=== PATIENT | male | born 1980 | race Caucasian/White ===

== ENCOUNTER 2020-01-30 20:26 | Emergency (ER) | payer BC ==
[~2020-01-30] VITALS: Ht 175.3 cm; Wt 81.6 kg
--- OUTSIDE RECORDS SUMMARY | 2020-01-30 20:29 | XMS REPORT | Summary of Care ---
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 Take organism 500 mg day 1, then 250 mg days 2 to 5. Active SPIRIVA RESPIMAT 2.5 INHALE 1 PUFF 0 mcg/actuation Mist PO BID 9 Active albuterol 90 Inhale 2 8.5 g 0 mcg/actuation Puffs every 4 9 inhalerIndications: Acute (four) hours bronchitis, unspecified as needed for organism Wheezing or Shortness of Breath. Active budesonide-formoterol Inhale 2 10.2 g 3 (SYMBICORT) 160-4.5 Puffs 2 (two) 9 mcg/actuation times daily. inhalerIndications: Acute bronchitis, unspecified organism Active predniSONE 20 mg Take 2 pills 10 tablet 0 07/13/20 1 tabletIndications: Acute daily for 5 9 bronchitis, unspecified days organism Active azithromycin 250 mg Take 1 tablet 1 Package 0 tabletIndications: Acute by mouth 9 bronchitis, unspecified daily. Take organism 500 mg day 1, then 250 mg days 2 to 5. Active codeine-guaifenesin Take 5 mL by 120 mL 0 07/13 (CHERATUSSIN AC) 10-100 mouth every 6 9 mg/5 mL (six) hours solutionIndications: as needed for Acute bronchitis, Cough. unspecified organism Active montelukast 10 mg Take 1 tablet 90 tablet 1 tabletIndications: Acute by mouth 9 bronchitis, unspecified daily. organism, Intermittent asthma without complication, unspecified asthma severity Active SPIRIVA RESPIMAT 2.5 INHALE 1 PUFF 4 g 1 mcg/actuation BY MOUTH 0 MistIndications: Acute TWICE DAILY bronchitis, unspecified organism 2019 Discontinued tiotropium bromide Inhale 1 Puff 4 g 1 07/13 (SPIRIVA RESPIMAT) 2.5 2 (two) times 9 mcg/actuation daily. MistIndications: Acute bronchitis, unspecified organism documented as of this encounter (statuses as of 2019) Active Problems No known active problemsdocumented as of this encounter (statuses as of 2019) Social History Date Tobacco Use Types Packs/Day Years Used Current Every Day Smoker Smokeless Tobacco: Current User Drinks/Week oz/Week Comments Alcohol Use Yes Sex Assigned at Date Recorded Not on file Industry Job Start Date Occupation Not on file Not on file Not on file Travel End Travel History Travel Start No recent travel history available. documented as of this encounter Last Filed Vital Signs Not on filedocumented in this encounter Plan of Treatment Health Maintenance Due Date Last Done Comments VARICELLA VACCINES (1 of 1982 2 - 2-dose childhood series) PNEUMOCOCCAL 0-64 YEARS 1987 COMBINED SERIES (1 of - PPSV23) DTaP,Tdap,and Td Vaccines 1992 (1 - Tdap) INFLUENZA VACCINE (#1) 2019 documented as of this encounter Results Not on filedocumented in this encounter Visit Diagnoses Diagnosis Acute bronchitis, unspecified organism documented in this encounter Insurance Type Payer Benefit Subscriber ID Effective Phone Address Plan / Dates Group PPO/POS [employer] OF [place] BCBS OF [id number] 2018-P [phone] [facility] [id number] [place] [address] documented as of this encounter
--- OUTSIDE RECORDS SUMMARY | 2020-01-30 20:29 | XMS REPORT ---
Author Author [facility] Organization [facility] Address [address] [place] [address] Phone Unavailable Care Team Providers Care Brass Chaser Name Role Phone Unavailable Unavailable Payers Payer Name Policy Type Policy Number Effective Date Expiration Date S ource Problems This patient has no known problems. Allergies, Adverse Reactions, Alerts Allergy Name Allergy Type Status Severity Reaction(s) Onset Date Inacti ve Date Treating Clinician Comments Source No Known Allergies DA Active U 2017-08-22 00:00:00 [facility] Medications This patient has no known medications. Procedures This patient has no known procedures. Results Test Description Test Time Test Comments Results Result Comments Source CBC W/O DIFF 2018-10-22 05:47:00 Test Item WHITE BLOOD CELL (test code = WBC) 14.1 K/mm3 4.5-12.5 H RED BLOOD CELL (test code = RBC) 5.05 mill/mm3 4.0-5.8 N HEMOGLOBIN (test code = HGB) 16.1 gram/dL 13.0-17.5 N HEMATOCRIT (test code = HCT) 48.9 % 42.0-52.0 N MEAN CELL VOLUME (test code = MCV) 96.8 fL 80-98 N MEAN CELL HGB (test code = MCH) 31.9 picogram 27.0-33.0 N MEAN CELL HGB CONCETRATION (test code = MCHC) 32.9 gram/dL 33.0-36. 0 L RED CELL DISTRIBUTION WIDTH (test code = RDW) 14.1 % 11.6-16. 2 N PLATELET COUNT (test code = PLT) 399 K/mm3 150-450 N MEAN PLATELET VOLUME (test code = MPV) 9.9 fL 6.7-11.0 N CBC W/O [id number] 05:44:00* Test Item Value Reference Range Interpretation Comments WHITE BLOOD CELL (test code = WBC) K/mm3 4.5-12.5 RED BLOOD CELL (test code = RBC) mill/mm3 4.0-5.8 HEMOGLOBIN (test code = HGB) 16.1 gram/dL 13.0-17.5 N HEMATOCRIT (test code = HCT) 48.9 % 42.0-52.0 N MEAN CELL VOLUME (test code = MCV) fL 80-98 MEAN CELL HGB (test code = MCH) picogram 27.0-33.0 MEAN CELL HGB CONCETRATION (test code = MCHC) gram/dL 33.0-36. 0 RED CELL DISTRIBUTION WIDTH (test code = RDW) % 11.6-16. 2 PLATELET COUNT (test code = PLT) K/mm3 150-450 MEAN PLATELET VOLUME (test code = MPV) fL 6.7-11.0 - XR CHEST 1 [id number] 05:37:00 FAX: JAMES DA SILAV MD Kelly: St: REG Name: [facility] : 10/01/18 [birth year] Age/S: 38/M [address] [facility] Unit #: [id number] Loc: [place] [address] Phys: JAMES DA SILVA MD Acct: [id number] Dis Date: Status: REG ER PHONE #: [phone] Exam Date: 10/22/2018 05 FAX #: [phone] Reason: CHEST PAIN EXAMS: CPT CODE: [id number] XR CHEST 1 V 25526 AFTER HOURS SERVICE ON: 10/22/2018 5:37 AM AP Portable Chest Location Code M12 HISTORY: CHEST PAIN FINDINGS: There are no in filtrates. There are no pleural effusions. There is no pneumothorax. Cardi ac silhouette and mediastinum appear within normal limits. IMPRESSION: No active pulmonary findings. at 0556 Reported and signed by: Shantal Messina M.D. CC: JAMES DA SILVA MD Technologist: RT VERO(Amelie) Trnscrd Date/Time/By: 10/22/2018 (0537) : By: [email or web address] Orig Print D/T: S: 10/22/2018 (7568) PAGE 1 Signed Report
[2020-01-30 20:52] LABS: BASOPHILS # (AUTO) 0.1 (0.0-0.1); BASOPHILS % 0.5 % (0.0-1.0); EOSINOPHILS # (AUTO) 1.3 (0.0-0.4); EOSINOPHILS % 10.6 % (0.0-6.0); HEMATOCRIT 44.6 % (38.2-49.6); HEMOGLOBIN 14.7 g/dL (14.0-18.0); LYMPHOCYTES # (AUTO) 6.1 (1.0-3.2); LYMPHOCYTES % 49.1 % (18.0-39.1); MEAN CORPUSCULAR VOLUME 94.1 fL (81-99); MONOCYTES # (AUTO) 1.1 (0.2-0.8); MONOCYTES % 8.6 % (4.4-11.3); NEUTROPHILS # (AUTO) 3.8 (2.1-6.9); NEUTROPHILS % 30.9 % (38.7-80.0); PLATELET COUNT 403 x10e3/uL (140-360); RED BLOOD COUNT 4.74 x10e6/uL (4.3-5.7); RED CELL DISTRIBUTION WIDTH 13.4 % (11.7-14.4)
--- NOTE | 2020-01-30 20:55 | Emergency Department Note ---
History of Present Illnes History of Present Illness Chief Complaint: Chest Pain History of Present Illness This is a 39 year old male who presents with left side chest pain for a week, pain does not radiate, does wax and wane, denies sob, diaphoresis . Historian: Patient Arrival Mode: Car Onset (how long ago): day(s) (7) Location: left upper chest Quality: discomfort/pain Radiation: non-radiation Severity: mild Onset quality: sudden Duration (how long): day(s) (7) Timing of current episode: constant Progression: waxing and waning Context: recent illness Relieving factors: none Exacerbating factors: none Associated symptoms: denies other symptoms Past Medical/Family History Physician Review I have reviewed the patient's past medical and family history. Any updates have been documented here. 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 IVC FILTER - 2003 LT LEG SX X3 Social History Smoking Cessation: Former smoker Alcohol Use: None Any Illegal Drug Use: No Family History Family history of heart diseas: Yes Other Last Tetanus: 2008 Review of Systems Review of Systems Constitutional: no symptoms EENTM: no symptoms Cardiovascular: as per HPI Respiratory: no symptoms Gastrointestinal: no symptoms Genitourinary: no symptoms Musculoskeletal: no symptoms Neurological: no symptoms Psychological: no symptoms Endocrine: no symptoms Hematological/Lymphatic: no symptoms Review of other systems All other systems reviewed and negative. Physical Exam Related Data Allergies: Coded Allergies: No Known Allergies (Unverified , 09/20/12) Triage Vital Signs Vital Signs Date Time Temp Pulse Resp B/P (MAP) Pulse Ox O2 Delivery O2 Flow Rate FiO2 01/30/20 20:30 96.9 73 20 156/94 100 Vital signs reviewed: Yes Physical Exam CONSTITUTIONAL Constitutional: well-developed, well-nourished HENT HENT: normocephalic, atraumatic, oropharynx clear/moist, nose normal HENT L/R: left ext ear normal, right ext ear normal EYES Eyes: PERRL, conjunctivae normal NECK Neck: ROM normal PULMONARY Pulmonary: effort normal, breath sounds normal CARDIOVASCULAR Cardiovascular: regular rhythm, heart sounds normal, capillary refill normal, normal rate GASTROINTESTINAL Abdominal: soft, nontender, bowel sounds normal GENITOURINARY Genitourinary: exam deferred SKIN Skin: warm, dry MUSCULOSKELETAL Musculoskeletal: ROM normal NEUROLOGICAL Neurological: alert, oriented x 3, no gross motor or sensory deficits PSYCHOLOGICAL Psychological: mood/affect normal, judgement normal Results Laboratory Laboratory Laboratory Tests Test 01/30/20 20:36 White Blood Count 12.34 x10e3/uL (4.8-10.8) Red Blood Count 4.74 x10e6/uL (4.3-5.7) Hemoglobin 14.7 g/dL (14.0-18.0) Hematocrit 44.6 % (38.2-49.6) Mean Corpuscular Volume 94.1 fL (81-99) Mean Corpuscular Hemoglobin 31.0 pg (28-32) Mean Corpuscular Hemoglobin Concent 33.0 g/dL (31-35) Red Cell Distribution Width 13.4 % (11.7-14.4) Platelet Count 403 x10e3/uL (140-360) Neutrophils (%) (Auto) 30.9 % (38.7-80.0) Lymphocytes (%) (Auto) 49.1 % (18.0-39.1) Monocytes (%) (Auto) 8.6 % (4.4-11.3) Eosinophils (%) (Auto) 10.6 % (0.0-6.0) Basophils (%) (Auto) 0.5 % (0.0-1.0) Neutrophils # (Auto) 3.8 (2.1-6.9) Lymphocytes # (Auto) 6.1 (1.0-3.2) Monocytes # (Auto) 1.1 (0.2-0.8) Eosinophils # (Auto) 1.3 (0.0-0.4) Basophils # (Auto) 0.1 (0.0-0.1) Absolute Immature Granulocyte (auto 0.04 x10e3/uL (0-0.1) D-Dimer Quantitative (PE/DVT) 0.30 ug/mLFEU (0.00-0.45) Sodium Level 140 mmol/L (136-145) Potassium Level 4.2 mmol/L (3.5-5.1) Chloride Level 105 mmol/L (98-107) Carbon Dioxide Level 27 mmol/L (22-29) Anion Gap 12.2 mmol/L (8-16) Blood Urea Nitrogen 15 mg/dL (7-26) Creatinine 1.09 mg/dL (0.72-1.25) Estimat Glomerular Filtration Rate > 60 ML/MIN (60-) BUN/Creatinine Ratio 14 (6-25) Glucose Level 81 mg/dL (74-118) Calcium Level 9.1 mg/dL (8.4-10.2) Total Bilirubin 0.2 mg/dL (0.2-1.2) Aspartate Amino Transf (AST/SGOT) 18 IU/L (5-34) Alanine Aminotransferase (ALT/SGPT) 14 IU/L (0-55) Alkaline Phosphatase 75 IU/L (40-150) Creatine Kinase 118 IU/L (30-200) Creatine Kinase MB 2.70 ng/mL (0-5.0) Troponin I < 0.001 ng/mL (0-0.300) Total Protein 7.2 g/dL (6.5-8.1) Albumin 3.9 g/dL (3.5-5.0) Globulin 3.3 g/dL (2.3-3.5) Albumin/Globulin Ratio 1.2 (0.8-2.0) Laboratory Tests Test 01/30/20 20:36 Lab results reviewed: Yes Imaging Imaging results reviewed: Yes Impressions normal cxr, no acute findings, i spoke with dr hudson Procedures 12 Lead ECG Interpretation Employment Agency Manager: Interpreted by ED physician Rhythm: sinus rhythm Rate: normal BPM: 66 QRS axis: normal ST segments normal: Yes T waves normal: Yes Clinical Impression: normal ECG Critical Care Time Subsequent provider I assumed direction of critical care for this patient from another provider of my specialty. Clinical Decision Tools HEART Score HEART Score: HEART Score Response (Comments) Value History Slightly suspicious 0 EKG Normal 0 Age < 45 0 Risk factors no risk factors 0 Troponin 1-3x normal limit Total 0 Assessment & Plan Assessment & Plan Final Impression: (1) Chest pain Assessment & Plan pt with left upper chest pain for 1 week, cbc, cmp, cardiac enzymes, ekg, cxr, d-dimer ordered to eval for myocardial infarction, pulmonary embolus, electrolyte abnormality, lung abnormality Depart Disposition: HOME, SELF-CARE Last Vital Signs Date Time Temp Pulse Resp B/P (MAP) Pulse Ox O2 Delivery O2 Flow Rate FiO2 01/30/20 20:30 96.9 73 20 156/94 100 Home Meds No Active Prescriptions or Reported Meds DIMA DALE MD January 30, 2020 20:55
[2020-01-30 21:09] LABS: ALANINE AMINOTRANSFERASE 14 IU/L (0-55); ALBUMIN 3.9 g/dL (3.5-5.0); ALBUMIN/GLOBULIN RATIO 1.2 (0.8-2.0); ALKALINE PHOSPHATASE 75 IU/L (40-150); ANION GAP 12.2 mmol/L (8-16); BLOOD UREA NITROGEN 15 mg/dL (7-26); BUN/CREATININE RATIO 14 (6-25); CALCIUM 9.1 mg/dL (8.4-10.2); CARBON DIOXIDE 27 mmol/L (22-29); CHLORIDE 105 mmol/L (98-107); CREATINE KINASE 118 IU/L (30-200); CREATININE, SERUM 1.09 mg/dL (0.72-1.25); EST GLOMERULAR FILTRATION RATE > 60 ML/MIN (60-); GLUCOSE 81 mg/dL (74-118); POTASSIUM 4.2 mmol/L (3.5-5.1); SODIUM 140 mmol/L (136-145)
--- NOTE | 2020-01-30 21:59 | Diagnostic Imaging Report ---
EXAMINATION: CHEST SINGLE (PORTABLE) INDICATION: Chest pain COMPARISON: FINDINGS: TUBES and LINES: None. LUNGS: Normal lung volumes. Lungs are clear. No consolidations. PLEURA: No pleural effusion or pneumothorax. HEART AND MEDIASTINUM: The cardiomediastinal silhouette is unremarkable. BONES AND SOFT TISSUES: No acute osseous lesion. Soft tissues are unremarkable. UPPER ABDOMEN: No free air under the diaphragm. IMPRESSION: No acute thoracic radiographic abnormality. Signed by: Baldomero Murphy DO on 01/30/2020 9:56 PM
== END 2020-01-30 22:45 | disposition home or self-care (01) ==
LOC: ER 20:26
DX: R07.89 Other chest pain (principal); K21.9 Gastro-esophageal reflux disease without esophagitis; J45.909 Unspecified asthma, uncomplicated; Z86.718 Personal history of other venous thrombosis and embolism
CPT/HCPCS: 36415; 71045; 80053; 82550; 82553; 84484; 85025; 85379; 93005; 99283